=== PATIENT | female | born 1965 | race Caucasian/White ===

== ENCOUNTER 2021-05-24 02:52 | Emergency (ER) | payer OTHER ==
[~2021-05-24] VITALS: Ht 165.1 cm; Wt 68.0 kg
[2021-05-24 03:35] LABS: ABSOLUTE NEUTROPHILS 4.4 thou/uL (1.4-8.2); BASOPHILS 0.6 % (0.0-2.0); EOSINOPHILS 1.7 % (0.0-3.0); HEMATOCRIT 38.1 % (37.0-47.0); HEMOGLOBIN 12.9 gm/dL (12.0-15.0); LYMPHOCYTES 35.5 % (24.0-44.0); MCH 29.3 pg (26.0-34.0); MCHC 33.9 g/dL (28.0-37.0); MCV 86.4 fL (80.0-100.0); MONOCYTES 9.2 % (1.0-8.0); PLATELET COUNT 271 thou/uL (150-400); RBC 4.41 mil/uL (4.20-5.00); RDW 13.9 % (10.5-14.5); WBC 8.2 thou/uL (4.0-11.0)
[2021-05-24 03:44] LABS: CALCIUM 9.2 mg/dL (8.5-10.1); POTASSIUM 3.6 mmol/L (3.5-5.1)
[2021-05-24] MEDS ORDERED: XANAX 0.5 MG0.5 MG PO (04:38)
[2021-05-24 04:42] VITALS: BP 140/91
--- NOTE | 2021-05-24 08:25 | EKG ---
[address] [place] [address] ELECTROCARDIOGRAM REPORT Name: GANGA MARRERO Room #: [facility] ([place], [place])Lida#: [id number] Admission: 05/24/21 Attend Phys: Discharge: 05/24/21 Date of : 69 Report #: [id number] [facility] ED Test Date: 2021-05-24 Test Time: 03:01:29 Pat Name: GANGA MARRERO Department: Room: Gender: F Delivery Supervisor: DERRICK : 1965 Requested By: Donte Betancourt Order Number: [id number] MD: Duarte Raymond Measurements Intervals [place] Rate: 101 P: 63 MD: 162 QRS: 18 QRSD: 91 T: -20 QT: 357 QTc: 463 Interpretive Statements Sinus tachycardia Borderline T abnormalities, inferior leads No previous ECG available for comparison Electronically Signed On 05-24-2021 8:25:12 [employer] W[employer]CK[employer] by Duarte Raymond [email or web address] <ELECTRONICALLY SIGNED> By: Duarte Raymond MD, [facility] 05/24/21 0825 030 0301 Duarte Raymond MD, FACC /EPI
== END 2021-05-24 04:54 | disposition home or self-care (01) ==
LOC: ER 02:52
PROVIDERS: Emergency Medicine
DX: F41.9 Anxiety disorder, unspecified (principal); R00.2 Palpitations; E78.5 Hyperlipidemia, unspecified